=== PATIENT | female | born 1940 | race Two or more races ===

== ENCOUNTER 2019-08-04 22:35 | Inpatient (IN) | payer MEDICARE, OTHER ==
[~2019-08-04] VITALS: Ht 152.4 cm; Wt 60.3 kg
[2019-08-04] MEDS ORDERED: ONDANSETRON HCL/PF 4 MG/2 ML VIAL ONE (22:57)
[2019-08-04] MEDS ORDERED: MORPHINE SULFATE INJ 4 MG/ML DISP.SYRIN ONE (22:57)
[2019-08-04] MEDS ORDERED: MORPHINE SULFATE INJ 2 MG/ML DISP.SYRIN IV ONE (23:00)
[2019-08-04] MEDS ORDERED: IV NS 0.9% 1,000 ML BAG IV ONE (23:00)
[2019-08-04] MEDS ORDERED: ONDANSETRON HCL/PF 4 MG/2 ML VIAL IVP ONE (23:00)
[2019-08-04 23:07] LABS: BASOPHILS % (AUTO) 0.4 % (0.0-2.0); EOSINOPHILS % (AUTO) 2.1 % (0.0-6.0); HEMATOCRIT 34 % (33-45); LYMPHOCYTES # (AUTO) 0.9 /CMM (0.8-4.8); LYMPHOCYTES % (AUTO) 11.1 % (20.0-44.0); MEAN CORPUSCULAR HGB CONC 32 g/dl (31.0-36.0); MEAN CORPUSCULAR VOLUME 80 fL (82-100); MONOCYTES # (AUTO) 0.6 /CMM (0.1-1.30); MONOCYTES % (AUTO) 7.6 % (2.0-12.0); NEUTROPHILS # (AUTO) 6.7 /CMM (1.8-8.9); NEUTROPHILS % (AUTO) 78.8 % (43.0-81.0); PLATELET COUNT (AUTO) 289 /CMM (150-450); RED BLOOD CELL COUNT(AUTO) 4.27 MIL/uL (4.0-5.2); WHITE BLOOD COUNT (AUTO) 8.5 K/uL (4.3-11.0)
--- NOTE | 2019-08-04 23:10 | NUR ---
BIBFAMILY C/O UPPER ABDOMINAL PAIN X3 DAYS. -NAUSEA/VOMITTING. +GAS, HX OF HERNIA, HERNIA REPAIR X3 WEEKS PER FAMILY, TO ER BED 2 VSS, ORDERS RECEIVED AND CARRIED OUT
[2019-08-04 23:17] LABS: CALCIUM, SERUM 9.6 mg/dL (8.5-10.1); CARBON DIOXIDE 30 mmol/L (21-32); CHLORIDE 104 mmol/L (98-107); CREATININE 0.9 mg/dL (0.6-1.3); GLUCOSE 162 mg/dL (74-106); SODIUM SERUM 142 mmol/L (136-145); UREA NITROGEN, BLOOD 17 mg/dL (7-18)
[2019-08-04 23:23] LABS: ALANINE AMINOTRANSFERASE 23 U/L (12-78); ALBUMIN 3.3 g/dL (3.4-5.0); ALKALINE PHOSPHATASE 87 U/L (46-116); ASPARTATE AMINOTRANSFERASE 17 U/L (15-37); BILIRUBIN,DIRECT 0.1 mg/dL (0.0-0.2); BILIRUBIN,TOTAL 0.4 mg/dL (0.2-1.0); LIPASE 118 U/L (73-393); TOTAL PROTEIN, SERUM 7.1 g/dL (6.4-8.2)
--- NOTE | 2019-08-04 23:28 | NUR ---
URINE RETRIEVED AND SENT TO LAB FOR SPECIMEN
--- NOTE | 2019-08-04 23:32 | NUR ---
PT TAKED TO CT
[2019-08-04 23:33] LABS: APPEARANCE,URINE Clear (CLEAR); BILIRUBIN,URINE Negative (NEGATIVE); BLOOD, URINE Negative Ery/uL (NEGATIVE); COLOR,URINE Yellow (YELLOW); KETONES,URINE Negative (NEGATIVE); LEUKOCYTE ESTERASE ,URINE Trace (NEGATIVE); NITRITE, URINE Positive (NEGATIVE); PROTEIN,URINE Negative (NEGATIVE); UGLUCOSE Negative (NEGATIVE); UROBILINOGEN,URINE 0.2 EU/dL (0.2)
--- NOTE | 2019-08-04 23:38 | NUR ---
PT BACK FROM CT
[2019-08-04 23:44] LABS: BACTERIA,URINE Many /HPF (None Seen); RBC,URINE 0-2 /HPF (0-2); SQUAMOUS EPITHELIAL CELL,UR Few /HPF (None Seen)
[2019-08-04] MEDS ORDERED: CEFTRIAXONE 1 G VIAL ONE (23:57)
[2019-08-05] MEDS ORDERED: CEFTRIAXONE 1GM BAG (ER ONLY) 1 GM/50 ML PIGGYBACK IV ONE
[2019-08-05] MEDS ORDERED: LIDOCAINE 2% JEL 5 ML TUBE ONE (00:25)
[2019-08-05] MEDS ORDERED: LIDOCAINE VISCOUS 2% UD 15 ML UDC ONE (00:34)
[2019-08-05] MEDS ORDERED: LIDOCAINE VISCOUS 2% UD 15 ML UDC MM ONE (00:45)
[2019-08-05] MEDS ORDERED: DEXTROSE 50%-WATER 50 ML DISP.SYRIN IV PRN (01:00)
[2019-08-05] MEDS ORDERED: Z GUARD REMEDY 2 OZ OINT TP PRN (01:00)
[2019-08-05] MEDS ORDERED: MAGNESIUM HYDROXIDE 30 ML UDC PO PRN (01:00)
[2019-08-05] MEDS ORDERED: *INSULIN REGULAR(HUMULIN R)HUM 100 UNIT/ML VIAL SQ PRN (01:00)
[2019-08-05] MEDS ORDERED: HYDROCODONE/APAP 5/325MG 1 EACH TABLET PO PRN (01:00)
[2019-08-05] MEDS ORDERED: CEFTRIAXONE 1 G in IV D5W 50 ML IV SCH (01:00)
[2019-08-05] MEDS ORDERED: ACETAMINOPHEN 325 MG TABLET PO PRN (01:00)
[2019-08-05] MEDS ORDERED: INSULIN REGULAR, HUMAN 100 UNIT/ML 3 ML VIAL SQ PRN (01:00)
[2019-08-05] MEDS ORDERED: MAG HYDROX/AL HYDROX/SIMETH 30 ML UDC PO PRN (01:00)
[2019-08-05] MEDS ORDERED: MORPHINE SULFATE INJ 2 MG/ML DISP.SYRIN ONE (01:19)
[2019-08-05] MEDS: MORPHINE SULFATE INJ 2 MG/ML DISP.SYRIN IV PRN ×3 (01:24→14:47)
[2019-08-05 01:50] VITALS: BP 146/89
--- NOTE | 2019-08-05 01:51 | NUR ---
TRANSPORTED PT TO UNIT
[2019-08-05] MEDS: IV D5W 1,000 ML IV PRN ×2 (02:08→15:48)
[2019-08-05] MEDS: ONDANSETRON HCL/PF 4 MG/2 ML VIAL IVP PRN (06:22)
[2019-08-05] MEDS: BLOOD SUGAR DIAGNOSTIC 1 EACH STRIP VI SCH ×4 (06:34→21:29)
--- NOTE | 2019-08-05 06:48 | NUR ---
MS RN NOTES AWAKE & RESPONSIVE. NOT IN ANY DISTRESS. NO SOB NOTED. DENIES ANY PAIN OR DISCOMFORT AT THIS TIME. WITH NGT TO LIS WITH BROWNISH OUTPUT SCANTY IN AMOUNT. MONITORED ACCORDINGLY. CALL LIGHT WITHIN REACH. BED IN LOWEST POSITION. SR UP X 3 WITH BED ALARM ON FOR SAFETY. WILL ENDORSE TO NEXT SHIFT.
--- NOTE | 2019-08-05 07:50 | NUR ---
MS RN NOTES PATIENT IN BED SLEEPING. EMIRATI SPEAKING. NO SOB OR ACUTE DISTRESS NOTED. DAUGHTER AT BEDSIDE. PERIPHERAL IV INTACT PATENT. NG TUBE IN PLACE ON INTERMITTENT SUCTIONING. BED IN LOW LOCKED POSITION. CALL LIGHT WITHIN REACH. WILL CONTINUE TO MONITOR.
[2019-08-05 08:00] VITALS: BP 123/70
[2019-08-05] MEDS ORDERED: CYCL30DR EACHEYE (08:15)
[2019-08-05] MEDS ORDERED: MYRBETRIQ PO (08:15)
[2019-08-05] MEDS ORDERED: ATOR10TA PO (08:15)
[2019-08-05] MEDS ORDERED: LOSA1TAB36 PO (08:15)
[2019-08-05] MEDS ORDERED: METF-440 PO (08:15)
[2019-08-05 16:00] VITALS: BP 146/76
[2019-08-05] MEDS ORDERED: DIATR MEGLU/DIATRIZOATE SODIUM 120 ML BOTTLE (GASTROGRAPHIN) ONE (16:12)
--- NOTE | 2019-08-05 18:41 | NUR ---
MS RN NOTES PATIENT IN BED RESTING NO SOB OR ACUTE DISTRESS NOTED. ALL DUE MEDICATIONS ADMINISTERED. ALL NEEDS MET. NO ACUTE CHANGES NOTED DURING AM SHIFT. WILL ENDORSE CARE TO PM SHIFT.
[2019-08-05 20:20] VITALS: BP 134/74
[2019-08-06] MEDS ORDERED: CEFTRIAXONE 1 G in IV D5W 50 ML IV SCH ×2
[2019-08-06] MEDS: ONDANSETRON HCL/PF 4 MG/2 ML VIAL IVP PRN (04:54)
[2019-08-06] MEDS: MORPHINE SULFATE INJ 2 MG/ML DISP.SYRIN IV PRN ×2 (04:54→08:42)
[2019-08-06] MEDS: BLOOD SUGAR DIAGNOSTIC 1 EACH STRIP VI SCH ×2 (06:26→12:09)
[2019-08-06 06:32] LABS: BASOPHILS % (AUTO) 0.3 % (0.0-2.0); EOSINOPHILS % (AUTO) 1.2 % (0.0-6.0); HEMATOCRIT 34 % (33-45); HEMOGLOBIN 10.8 g/dL (11.5-14.8); LYMPHOCYTES # (AUTO) 0.7 /CMM (0.8-4.8); LYMPHOCYTES % (AUTO) 9.6 % (20.0-44.0); MEAN CORPUSCULAR HGB CONC 32 g/dl (31.0-36.0); MEAN CORPUSCULAR VOLUME 80 fL (82-100); MONOCYTES # (AUTO) 0.6 /CMM (0.1-1.30); MONOCYTES % (AUTO) 7.9 % (2.0-12.0); NEUTROPHILS # (AUTO) 6.2 /CMM (1.8-8.9); PLATELET COUNT (AUTO) 272 /CMM (150-450); RED BLOOD CELL COUNT(AUTO) 4.22 MIL/uL (4.0-5.2); WHITE BLOOD COUNT (AUTO) 7.6 K/uL (4.3-11.0)
[2019-08-06 06:50] LABS: CALCIUM, SERUM 8.5 mg/dL (8.5-10.1); CREATININE 0.7 mg/dL (0.6-1.3); MAGNESIUM 1.8 mg/dL (1.8-2.4); PHOSPHORUS 3.2 mg/dL (2.5-4.9); POTASSIUM 3.5 mmol/L (3.5-5.1)
--- NOTE | 2019-08-06 07:30 | NUR ---
RN OPENING NOTES PATIENT IN BED SLEEPING. KHMER SPEAKING. NO SOB OR ACUTE DISTRESS NOTED. DAUGHTER AT BEDSIDE. PERIPHERAL IV INTACT AND PATENT. NG TUBE IN PLACE ON INTERMITTENT SUCTIONING. BED IN LOW LOCKED POSITION. CALL LIGHT WITHIN REACH. WILL CONTINUE TO MONITOR ACCORDINGLY
[2019-08-06 08:00] VITALS: BP 127/73
[2019-08-06] MEDS ORDERED: LIDOCAINE SOLN 4% 50 ML BOTTLE TP ONE (08:30)
--- NOTE | 2019-08-06 08:38 | NUR ---
WOUND CARE CONSULT: PT PRESENTS AMBULATORY WITH ASSISTANCE WITH HEALED SCARS AND DRY SCAB TO ABDOMEN, PRESENT ON ADMISSION. PER PT'S DAUGHTER, PT HAD ABDOMINAL SURGERY 4 WKS AGO. NO WOUND CARE NEEDED AT THIS TIME. WILL SEE PRN. CURRENT MARK SCORE IS 19.
--- NOTE | 2019-08-06 11:00 | NUR ---
RN NOTES RECEIVED A CALL FROM DR AKERS. ORDERS TO REMOVE NG TUBE, CLEAR LIQ DIET AND ADVANCE DIET TOLERATED. ORDERS NOTED AND WILL CARRY OUT
--- NOTE | 2019-08-06 13:52 | NUR ---
rn notes followed up with central supply. awaiting for DVT pump
--- NOTE | 2019-08-06 13:55 | NUR ---
RN NOTES DR AKERS AT BEDSIDE. PATIENT CLEAR FOR DISCHARGE PER MD.
--- NOTE | 2019-08-06 16:33 | NUR ---
DISCHARGED PATIENT IN STABLE CONDITION PICKED UP BY DAUGHTER, ACCOMPANIED BY JOEL SHER AT THE LOBBY VIA WHEELCHAIR. DISCHARGE INSTRUCTIONS GIVEN, TO F/U WITH PCP AND CONT HOME MEDS ORDERED. VERBALIZED UNDERSTANDING. DC PAPERWORK AND CD IMAGES PROVIDED. BELONGINGS RETURNED, FORM SIGNED. IV ACCESS REMOVED, NO COMPLICATIONS. NAME BAND REMOVED
== END 2019-08-06 16:30 | disposition home or self-care (01) | DRG 389 ==
LOC: ER 22:40 → MEDSG2 08-05 00:53
PROVIDERS: ADMIT Internal Medicine; ATTEND Student in an Organized Health Care Education/Training Program
DX: K56.609 Unspecified intestinal obstruction, unspecified as to partial versus complete obstruction (principal); N39.0 Urinary tract infection, site not specified; E44.0 Moderate protein-calorie malnutrition; E11.9 Type 2 diabetes mellitus without complications; E66.9 Obesity, unspecified; E78.5 Hyperlipidemia, unspecified; I10 Essential (primary) hypertension; Z68.26 Body mass index [BMI] 26.0-26.9, adult; K44.9 Diaphragmatic hernia without obstruction or gangrene
CPT/HCPCS: 36415; 71045-TC; 74250-TC; 80048-TC; 80076-TC; 81000-TC; 82962-TC; 83690-TC; 83735-TC; 84100-TC; 84484-TC; 85025-TC; 85730-TC; 87081-TC; 87086-TC; G0378; J0696; J1815; J2270; J2405; J7030; J7060; J7070; Q9963

== ENCOUNTER 2019-10-14 22:54 | Inpatient (IN) | payer MEDICARE, OTHER ==
[~2019-10-14] VITALS: Ht 152.4 cm; Wt 58.5 kg
[~2019-10-14 22:54] MED LIST: ATOR10TA PO; CYCL30DR EACHEYE; LOSA1TAB36 PO; METF-440 PO; MYRBETRIQ PO
[2019-10-14] MEDS ORDERED: MORPHINE SULFATE INJ 4 MG/ML DISP.SYRIN ONE (23:22)
[2019-10-14] MEDS ORDERED: ONDANSETRON HCL/PF 4 MG/2 ML VIAL ONE (23:22)
--- NOTE | 2019-10-14 23:25 | NUR ---
BLOOD COLLECTED AND SENT W/ CHILD PROTECTIVE SERVICES SOCIAL WORKER TO THE LAB
[2019-10-14 23:28] LABS: BASOPHILS % (AUTO) 0.4 % (0.0-2.0); EOSINOPHILS % (AUTO) 1.3 % (0.0-6.0); HEMATOCRIT 42 % (33-45); HEMOGLOBIN 13.3 g/dL (11.5-14.8); LYMPHOCYTES # (AUTO) 1.4 /CMM (0.8-4.8); LYMPHOCYTES % (AUTO) 12.7 % (20.0-44.0); MEAN CORPUSCULAR HGB CONC 32 g/dl (31.0-36.0); MEAN CORPUSCULAR VOLUME 83 fL (82-100); MONOCYTES # (AUTO) 0.7 /CMM (0.1-1.30); MONOCYTES % (AUTO) 6.1 % (2.0-12.0); NEUTROPHILS # (AUTO) 8.7 /CMM (1.8-8.9); NEUTROPHILS % (AUTO) 79.5 % (43.0-81.0); PLATELET COUNT (AUTO) 350 /CMM (150-450); RED BLOOD CELL COUNT(AUTO) 5.03 MIL/uL (4.0-5.2); WHITE BLOOD COUNT (AUTO) 10.9 K/uL (4.3-11.0)
[2019-10-14] MEDS ORDERED: MORPHINE SULFATE INJ 2 MG/ML DISP.SYRIN IV ONE (23:30)
[2019-10-14] MEDS ORDERED: IV NS 0.9% 1,000 ML BAG IV ONE (23:30)
[2019-10-14] MEDS ORDERED: ONDANSETRON HCL/PF 4 MG/2 ML VIAL IVP ONE (23:30)
--- NOTE | 2019-10-14 23:32 | NUR ---
PT CAME TO ER BED 11 W/ DAUGHTER C/O ABDOMINAL PAIN. PT'S DAUGHTER STATES THAT SHE HAS HAD THE HERNIA ON HER STOMACH FOR YEARS AND IT JUST GOT BIGGER. PT STATES PAIN /. AAOX4. BREATHING EVENLY AND UNLABORED ON ROOM AIR. CONNECTED TO MONITOR.
[2019-10-14 23:38] LABS: CALCIUM, SERUM 9.7 mg/dL (8.5-10.1); CARBON DIOXIDE 30 mmol/L (21-32); CHLORIDE 103 mmol/L (98-107); CREATININE 0.9 mg/dL (0.6-1.3); GLUCOSE 156 mg/dL (74-106); POTASSIUM 3.9 mmol/L (3.5-5.1); SODIUM SERUM 142 mmol/L (136-145); UREA NITROGEN, BLOOD 19 mg/dL (7-18)
[2019-10-14 23:44] LABS: ALANINE AMINOTRANSFERASE 18 U/L (12-78); ALKALINE PHOSPHATASE 86 U/L (46-116); ASPARTATE AMINOTRANSFERASE 20 U/L (15-37); BILIRUBIN,DIRECT 0.1 mg/dL (0.0-0.2); BILIRUBIN,TOTAL 0.4 mg/dL (0.2-1.0); LIPASE 112 U/L (73-393); TOTAL PROTEIN, SERUM 8.2 g/dL (6.4-8.2)
--- NOTE | 2019-10-14 23:57 | NUR ---
RETURNED FROM CT
--- NOTE | 2019-10-15 00:36 | NUR ---
REPORT GIVEN TO CHARBEL VICENTE FOR ANKITA.
[2019-10-15] MEDS ORDERED: IV D5/0.45 NACL 1,000 ML IV PRN (00:48)
[2019-10-15] MEDS ORDERED: ONDANSETRON HCL/PF 4 MG/2 ML VIAL IVP PRN (01:00)
[2019-10-15] MEDS ORDERED: Z GUARD REMEDY 2 OZ OINT TP PRN (01:00)
[2019-10-15] MEDS ORDERED: HYDROCODONE/APAP 5/325MG 1 EACH TABLET PO PRN (01:00)
[2019-10-15] MEDS ORDERED: MAG HYDROX/AL HYDROX/SIMETH 30 ML UDC PO PRN (01:00)
[2019-10-15] MEDS ORDERED: MAGNESIUM HYDROXIDE 30 ML UDC PO PRN (01:00)
[2019-10-15] MEDS ORDERED: ZOLPIDEM TARTRATE 5 MG TABLET PO PRN (01:00)
[2019-10-15] MEDS ORDERED: ACETAMINOPHEN 325 MG TABLET PO PRN (01:00)
--- NOTE | 2019-10-15 01:14 | NUR ---
URINE COLLECTED AND SENT TO LAB
[2019-10-15 01:19] LABS: APPEARANCE,URINE Slightly Cloudy (CLEAR); BILIRUBIN,URINE Negative (NEGATIVE); BLOOD, URINE Negative Ery/uL (NEGATIVE); COLOR,URINE Yellow (YELLOW); KETONES,URINE Negative (NEGATIVE); LEUKOCYTE ESTERASE ,URINE Trace (NEGATIVE); NITRITE, URINE Negative (NEGATIVE); PH,URINE 8.5 (5.0-8.0); PROTEIN,URINE Negative (NEGATIVE); UGLUCOSE Negative (NEGATIVE); UROBILINOGEN,URINE 0.2 EU/dL (0.2)
[2019-10-15] MEDS ORDERED: MORPHINE SULFATE INJ 4 MG/ML DISP.SYRIN ONE (01:25)
[2019-10-15] MEDS ORDERED: MORPHINE SULFATE INJ 2 MG/ML DISP.SYRIN IV ONE (01:30)
[2019-10-15] MEDS ORDERED: ONDANSETRON HCL/PF 4 MG/2 ML VIAL IV ONE (01:30)
[2019-10-15 02:12] LABS: BACTERIA,URINE Moderate /HPF (None Seen); SQUAMOUS EPITHELIAL CELL,UR Few /HPF (None Seen); TRIPLE PHOSPHATE CRYSTAL,UR Few /HPF (None Seen)
[2019-10-15 02:20] VITALS: BP 114/68
--- NOTE | 2019-10-15 02:25 | NUR ---
HORSE RACING MANAGER NOTES RECEIVED PATIENT FROM ER TRANSPORTED VIA GURNEY, ACCOMPANIED BY DAUGHTER AND ER STAFF. ADMISSION PROCESS INITIATED, CALM, ALERT, ORIENTED X4 LATVIAN SPEAKING, KNOWS AND UNDERSTANDS SOME GERMAN, DENIES ANY PAIN AT THIS TIME, WITH MINOR DISCOMFORT. ORIENTED TO UNIT AND THE USE OF CALL LIGHT, SAFETY MEASURES IN PLACE, ASPIRATION PRECAUTION EMPHASIZED, SKIN ASSESSMENT DONE, SKIN IS INTACT WITH VISIBLE PROTRUSION AF ABDOMINAL HERNIA, AND OLD SCAR ON HER RIGHT KNEE. ALL NEEDS ANTICIPATED,, REPOSITIONED FOR COMFORT, WILL CONTINUE TO MONITOR ACCORDINGLY.
[2019-10-15 02:30] VITALS: BP 114/68
[2019-10-15] MEDS: MORPHINE SULFATE INJ 2 MG/ML DISP.SYRIN IV PRN ×3 (03:50→13:34)
--- NOTE | 2019-10-15 03:55 | NUR ---
RN NOTES PATIENT NOTED VOMITING APPROXIMATELY 10 CC OF BROWNISH DARK VOMITUS, AND COMPLAINTS OF PAIN 9/10, CRYING, GUARDING, WITH FACIAL GRIMACING NOTED, ZOFRAN IV AND MORPHINE 4MG IV GIVEN PER MD ORDER. WILL CONTINUE TO MONITOR.
[2019-10-15 04:08] VITALS: BP 138/72
--- NOTE | 2019-10-15 06:36 | NUR ---
RN NOTES ALL NEEDS ATTENDED AND MET ABLE TO REST AND SLEPT AT INTERVALS, SAFETY MEASURES INPLACE, ASPIRATION PRECAUTION EMPHASIZED, NPO MAINTAINED, NO NAUSEA AND VOMITING NOTED AT THIS TIME, CALL LIGHT WITH IN EASY REACH. WILL ENDORSE TO AM NURSE FOR CONTINUITY OF CARE.
--- NOTE | 2019-10-15 07:25 | NUR ---
MS RN OPENING NOTES RECEIVED PT IN BED, ASLEEP, EASILY AROUSED, LUXEMBOURGISH SPEAKING, A/O X4. FAMILY PRESENT AT BEDSIDE. PT TOLERATING RA, WITH NO ACUTE RESPIRATORY DISTRESS NOTED. PT DENIES ANY PAIN AND DISCOMFORT AT THE THIS TIME. PIV TO LAC G20, FLUSHED WITH NS, INTACT AND OPERATIONAL. PT KEPT COMFORTABLE. PT'S BED IN LOWEST LOCKED POSITION WITH SR X3. CALL LIGHT KEPT WITHIN REACH. WILL CONTINUE PLAN OF CARE.
[2019-10-15 07:30] VITALS: BP 102/59
--- NOTE | 2019-10-15 08:15 | NUR ---
MS RN NOTES SEEN AND EVALUATED BY SUPERVISOR SAMPLE PREPARATION/PS FROM SURGERY; DAUGHTER PRESENT AT BEDSIDE AND AWARE WITH THE PLAN OF CARE. ORDERS PLACED.
[2019-10-15] MEDS: PANTOPRAZOLE 40 MG VIAL IV SCH (08:19)
--- NOTE | 2019-10-15 08:50 | NUR ---
MS RN NOTES ABDOMINAL BINDER LARGE, PLACED. NGT INSERTION TRIED THRICE, BUT UNSUCCESSFUL. PT CRYING AND DOESN'T WANT NURSES TO PROCEED. FILER AND SANDER/SP MADE AWARE AND DAUGHTER'S CONCERN ABOUT MEDICINE JUST TO TAKE PER ORAL FOR PT'S XR BOWEL FOLLOW THROUGH. AWAITING FOR RESPONSE.
--- NOTE | 2019-10-15 09:10 | NUR ---
MS RN NOTES BUSINESS CENTER MANAGER/PS AWARE REGARDING PT'S REFUSAL OF NGT AND PREFERS TO DRINK THE CONTRAST ORALLY. BUSINESS CENTER MANAGER/PT OKAY WITH NO NGT AT THIS TIME, LONG PT CAN SWALLOW. DAUGHTER PRESENT AT BEDSIDE AND AWARE WITH THE PLAN. PT SIGNED CONSENT HERSELF FOR CONTRAST ADMINISTRATION BY MOUTH. PT AWARE WITH THE PLAN OF CARE WELL.
--- NOTE | 2019-10-15 10:11 | NUR ---
MS RN NOTES PT WHEELED TO XRAY FOR XR SB FOLLOW THROUGH. DAUGHTER PRESENT AT THE ROOM.
[2019-10-15] MEDS ORDERED: DIATR MEGLU/DIATRIZOATE SODIUM 120 ML BOTTLE (GASTROGRAPHIN) ONE (10:29)
[2019-10-15] MEDS ORDERED: DEXTROSE 50%-WATER 50 ML DISP.SYRIN IV PRN (12:00)
[2019-10-15] MEDS ORDERED: *INSULIN REGULAR(HUMULIN R)HUM 100 UNIT/ML VIAL SQ PRN (12:00)
[2019-10-15] MEDS ORDERED: INSULIN REGULAR, HUMAN 100 UNIT/ML 3 ML VIAL SQ PRN (12:00)
--- NOTE | 2019-10-15 12:22 | NUR ---
MS RN NOTES PT STILL AT THE READIOLOGY DEPARTMENT. AWAITING PT TO COME BACK FOR ACCUCHECK.
--- NOTE | 2019-10-15 12:40 | NUR ---
MS RN NOTES PT CAME BACK FROM RADIOLOGY.
[2019-10-15] MEDS: BLOOD SUGAR DIAGNOSTIC 1 EACH STRIP VI SCH ×3 (12:53→21:12)
[2019-10-15 13:33] VITALS: BP 113/69
[2019-10-15] MEDS: IV D5/0.45 NACL 1,000 ML IV PRN (13:45)
--- NOTE | 2019-10-15 17:55 | NUR ---
MS RN NOTES PT'S RESULT OF SMALL BOWEL FOLLOW THROUGH RELAYED TO SURGERY GRAPPLE SKIDDER OPERATOR/PS. AWAITING FOR ORDERS.
--- NOTE | 2019-10-15 18:01 | NUR ---
MS RN NOTES PER SURGERY CASEWORK MANAGER/PS KEEP PT NPO. PT HASN'T PASS GAS. WILL CONTINUE TO MONITOR.
--- NOTE | 2019-10-15 18:44 | NUR ---
MS RN CLOSING NOTES PT REMAINS IN BED, INTERMITTENTLY DOZING OFF, EASILY AROUSED, AZERI SPEAKING, A/O X4. FAMILY PRESENT AT BEDSIDE. PT TOLERATING RA, WITH NO ACUTE RESPIRATORY DISTRESS NOTED. PT DENIES ANY PAIN AND DISCOMFORT AT THE THIS TIME. IVF D5 1/2NS AT 100ML/HR TO LAC G20, FLUSHED WITH NS, INTACT AND FLUID INFUSING WELL. ALL NEEDS AND CARE ATTENDED. PT KEPT COMFORTABLE. PT'S BED IN LOWEST LOCKED POSITION WITH SR X3. CALL LIGHT KEPT WITHIN REACH. WILL ENDORSE TO INCOMING NIGHT NURSE FOR ANKITA.
--- NOTE | 2019-10-15 19:15 | NUR ---
MS RN OPENING NOTES: RECEIVED PT ON ROOM AIR AND IS TOLERATING WELL. 2 FAMILY MEMBERS AT BEDSIDE. PT HAS IV ON L AC #20G AND IS BEING INFUSED WITH IV D5 1/2 NS AT 100ML/HR. PT IS NPO AT THIS TIME. PT REQUESTING TO BE DISCONNECTED AT THIS TIME SHE IS HAVING TO GO TO THE BATHROOM MULTIPLE TIMES AT THIS TIME. NO SOB NOTED. NO S/S OF DISTRESS. PT IS CHINESE SPEAKING ONLY. PT IS A/OX3-4 AND CAN UNDERSTAND SOME FRISIAN. BED KEPT IN LOW, LOCKED POSITION, AND SIDE RAILS X 2UP. NO BED ALARM FOR NOW FAMILY IS AT BEDSIDE.
--- NOTE | 2019-10-15 20:45 | NUR ---
MS RN NOTES: NOTIFIED DR. GODOY THAT PT IS PASSING GAS AND HAVING BMS BUT HAD HER XR BOWEL FOLLOW THROUGH TODAY AND MAY BE RELATED TO CONTRAST. IS AWARE AND STILL TO KEEP HER NPO. SPOKE TO DTR AT BEDSIDE AND INFORMED HER THAT HER MOTHER IS TO STAY NPO FOR THE MEANTIME UNTIL ASSESSED BY HOSPITALIST TOMORROW. Addendum: 10/16/19 at 0725 by KARISSA DOSHI RN DTR HAD MENTIONED THAT HER BMS WERE LIKE SEAWEED COLOR AND THE LATEST ONE WAS LIGHT BROWN BUT LIQUIDY.
[2019-10-15 20:49] VITALS: BP 131/72
--- NOTE | 2019-10-15 21:14 | NUR ---
MS RN NOTES: BLOOD SUGAR THIS PM WAS 104. PT IS NPO AND PER SLIDING SCALE, NO INSULIN TO BE ADMINISTERED. PT ON IV D51/2 NS AT 100ML/HR. WILL CONTINUE TO MONITOR.
--- NOTE | 2019-10-16 | NUR ---
MS RN NOTES: PT CONNECTED BACK TO IV FLUIDS.
--- NOTE | 2019-10-16 00:37 | NUR ---
MS RN NOTES: INFORMED DR. GODOY THAT PT IS NPO AND COMPLAINING OF HEADACHE. OK TO ORDER TYLENOL 650MG SUPPOSITORY Q6HR FOR MILD PAIN. Addendum: 10/16/19 at 0202 by KARISSA DOSHI RN q6hr prn
--- NOTE | 2019-10-16 00:54 | NUR ---
MS RN NOTES: PT COMPLAINING OF A HEADACHE. PT WAS ADMINISTERED TYLENOL 650 MG SUPPOSITORY. WILL CONTINUE TO MONITOR.
[2019-10-16] MEDS ORDERED: ACETAMINOPHEN 650 MG/SUPP.RECT RC PRN (01:00)
[2019-10-16] MEDS: IV D5/0.45 NACL 1,000 ML IV PRN ×2 (02:54→21:40)
[2019-10-16] MEDS: BLOOD SUGAR DIAGNOSTIC 1 EACH STRIP VI SCH ×4 (06:36→21:48)
--- NOTE | 2019-10-16 06:36 | NUR ---
MS RN NOTES: BLOOD SUGAR THIS AM WAS 117. PT STILL NPO BUT IS ON IV D51/2 NS AT 100ML/HR. NO INSULIN WAS ADMINISTERED. WILL CONTINUE TO MONITOR.
--- NOTE | 2019-10-16 06:42 | NUR ---
MS RN CLOSING NOTES: ALL NEEDS WERE ATTENDED AND ANTICIPATED FOR. PT KEPT CLEAN, DRY, AND COMFORTABLE. IV REMAINS INTACT ON L AC AND IS BEING INFUSED WITH IV D5 1/2 NS AT 100ML/HR. PT REMAINS NPO AT THIS TIME. NO SOB NOTED. NO S/S OF DISTRESS. PT REMAINS ON ROOM AIR AND IS TOLERATING WELL. DTR AT BEDSIDE. NO COMPLAINTS OF PAIN. NO N/V. ABDOMINAL BINDER REMAINS IN PLACE. BED KEPT IN LOW, LOCKED POSITION, AND SIDE RAILS X 2UP. INSTRUCTED PT TO USE CALL LIGHT FOR ASSISTANCE AND EDUCATED DTR WELL. WILL ENDORSE TO AM NURSE FOR ANKITA.
[2019-10-16 06:43] LABS: BASOPHILS % (AUTO) 0.5 % (0.0-2.0); EOSINOPHILS % (AUTO) 5.4 % (0.0-6.0); HEMATOCRIT 29 % (33-45); HEMOGLOBIN 9.5 g/dL (11.5-14.8); LYMPHOCYTES # (AUTO) 1.3 /CMM (0.8-4.8); LYMPHOCYTES % (AUTO) 32.5 % (20.0-44.0); MEAN CORPUSCULAR HGB CONC 32 g/dl (31.0-36.0); MEAN CORPUSCULAR VOLUME 82 fL (82-100); MONOCYTES # (AUTO) 0.3 /CMM (0.1-1.30); MONOCYTES % (AUTO) 7.8 % (2.0-12.0); NEUTROPHILS # (AUTO) 2.2 /CMM (1.8-8.9); NEUTROPHILS % (AUTO) 53.8 % (43.0-81.0); PLATELET COUNT (AUTO) 237 /CMM (150-450); RED BLOOD CELL COUNT(AUTO) 3.58 MIL/uL (4.0-5.2); WHITE BLOOD COUNT (AUTO) 4.1 K/uL (4.3-11.0)
[2019-10-16 07:06] LABS: THYROID STIMULATING HORMONE 1.324 uIU/mL (0.358-3.74)
[2019-10-16 07:21] LABS: CALCIUM, SERUM 7.9 mg/dL (8.5-10.1); CREATININE 0.7 mg/dL (0.6-1.3); MAGNESIUM 1.8 mg/dL (1.8-2.4); PHOSPHORUS 3.2 mg/dL (2.5-4.9); POTASSIUM 3.3 mmol/L (3.5-5.1)
--- NOTE | 2019-10-16 07:39 | NUR ---
M/S RN OPENING NOTES RECEIVED PATIENT ON BED A/OX4 WITH RAMONA (DAUGHTER) ON BED SIDE, EMIRATI AND NAMIBIAN SPEAKING. RESPIRATION EVEN AND NON LABORED WITH NO ACUTE RESPIRATORY DISTRESS. ABD SOFT AND NON DISTENDED WITH ACTIVE BOWEL SOUNDS, HAD LOOSE BROWN BM YESTERDAY. DENIES PAIN AND DISCOMFORT. ON NPO. IV SITE AT LEFT AC PATENT IN FLUSHING WITH D5 1/2 NS AT 100 ML/HR. SKIN WARM TO TOUCH AND DRY. CALL LIGHT WITHIN REACH. WILL CONTINUE TO EVALUATE CARE
[2019-10-16 08:00] VITALS: BP 112/64
[2019-10-16] MEDS: PANTOPRAZOLE 40 MG VIAL IV SCH (08:11)
[2019-10-16] MEDS: POTASSIUM CL. PREMIX PERIPHER. 50 ML IV SCH ×2 (10:56→13:29)
--- NOTE | 2019-10-16 11:30 | NUR ---
M/S RN NOTES WHILE INFUSING POTASSIUM IV, PT COMPLAIN OF LEFT AC PAIN, SITE PATENT IN FLUSHING, NO S/SX OF INFILTRATION, ATTEMPTED TO REDUCE THE RATE TO 20 ML/HR, STILL FEEL "STING" EFFECT. RE-INSERTED LINE TO LEFT FOREARM #24, PATENT IN FLUSHING AND PROMINENT BACK FLOW. CONTINUED POTASSIUM IV, STILL PAINFUL. REFERRED TO DR. LOPES REGARDING INABILITY TO TOLERATE IV. WILL CHECK WITH SURGERY IF PT CAN EAT. WILL CONTINUE TO FF UP.
--- NOTE | 2019-10-16 13:06 | NUR ---
M/S RN NOTES PAGED DR. ALLY PEREZ FOR CLARIFICATION OR ORDER IF PT STILL REMAIN ON NPO. WAITING FOR RESPONSE
--- NOTE | 2019-10-16 13:37 | NUR ---
M/S RN NOTES OBTAINED NEW ORDER FROM DR. LOPES: START ON CLEAR LIQUID DIET, GIVE KCL 40 MEQ PO. DC POTASSIUM IV. WILL CONTINUE TO FF UP WITH SURGEON FOR PLAN OF CARE. ORDER READ BACK NOTED AND CARRIED OUT. PATIENT AND RAMONA (DAUGHTER) NOTIFIED.
[2019-10-16] MEDS ORDERED: POTASSIUM CHLORIDE 20 MEQ TAB.PRT.SR PO ONE (14:00)
[2019-10-16] MEDS ORDERED: POTASSIUM CHLORIDE 20 MEQ POWDER PACKET PO ONE (14:00)
--- NOTE | 2019-10-16 14:41 | NUR ---
M/S RN NOTES PT TOLERATED CLEAR LIQUID WITH NO N/V, DIARRHEA NOTED. WILL CONTINUE TO MONITOR.
[2019-10-16 16:00] VITALS: BP 128/66
[2019-10-16 16:14] LABS: OCCULT BLOOD STOOL POSITIVE (NEGATIVE)
--- NOTE | 2019-10-16 19:29 | NUR ---
M/S RN CLOSING NOTES PT A/OX4, RESPONSIVE TO ALL STIMULI. ASSESSED NO SOB. ABD SOFT WITH HERNIA PRESENCE, ABDOMINAL BINDER IN PLACE. SKIN KEPT CLEAN AND DRY, NO NEW OPEN SKIN BREAKDOWN. DENIES PAIN AND DISCOMFORT. RIGHT FA #24 PATENT IN FLUSHING. PT TOLERATED CLEAR LIQUID DIET. CALL LIGHT WITHIN REACH. BED IN LOW, LOCKED POSITION. ALL CONCERNS ATTENDED. ENDORSED PT CARE TO NEXT SHIFT
--- NOTE | 2019-10-17 05:03 | NUR ---
sPEAKS SETSWANA BUT DAUGHTER AT THE BEDSIDE TO TRANSLAT. MD PEREZ AT THE BEDSIDE AT 1999 EXPLAINED TO THE DAUGHTER AND PATIENT THAT SHE CAN GO HOME FROM HIS STAND POINT BUT LEONILA GO TO HER OUTSIDE MD THAT SHE HAS BEEN SEEING AND HAVE THE SURGERY. SHE HAD NO ABD PAIN THIS 12 HOURS. PASSING FLATUS. TOLERATING CLEAR LIQUIDS. STARTED AND IV LEFT F/A G22 AND RESTARTED THE IV FLUIDS.
[2019-10-17] MEDS: IV D5/0.45 NACL 1,000 ML IV PRN (06:44)
[2019-10-17] MEDS: BLOOD SUGAR DIAGNOSTIC 1 EACH STRIP VI SCH (06:48)
--- NOTE | 2019-10-17 07:29 | NUR ---
M/S RN OPENING NOTES RECEIVED PATIENT ON BED, A/OX 3, RESPONSIVE TO ALL STIMULI. RESPIRATION EVEN AND NON LABORED WITH NO ACUTE RESPIRATORY DISTRESS. ABDOMEN SOFT AND NON DISTENDED WITH ACTIVE BOWEL SOUNDS. DENIES PAIN AND DISCOMFORT. SKIN WARM TO TOUCH AND DRY. LEFT FOREARM #22 PATENT IN FLUSHING WITH D51/2 NS RUNNING AT 100 ML/HR. CALL LIGHT WITHIN REACH. ALL CONCERNS ATTENDED, BED IN LOW, LOCKED POSITION. WILL CONTINUE TO EVALUATE CARE.
[2019-10-17 08:00] VITALS: BP 137/64
[2019-10-17] MEDS: PANTOPRAZOLE 40 MG VIAL IV SCH (08:14)
[2019-10-17 08:28] LABS: BASOPHILS % (AUTO) 0.4 % (0.0-2.0); EOSINOPHILS % (AUTO) 5.5 % (0.0-6.0); HEMATOCRIT 32 % (33-45); HEMOGLOBIN 10.2 g/dL (11.5-14.8); LYMPHOCYTES # (AUTO) 1.1 /CMM (0.8-4.8); LYMPHOCYTES % (AUTO) 26.3 % (20.0-44.0); MEAN CORPUSCULAR HGB CONC 32 g/dl (31.0-36.0); MEAN CORPUSCULAR VOLUME 82 fL (82-100); MONOCYTES # (AUTO) 0.4 /CMM (0.1-1.30); MONOCYTES % (AUTO) 9.7 % (2.0-12.0); NEUTROPHILS # (AUTO) 2.5 /CMM (1.8-8.9); NEUTROPHILS % (AUTO) 58.1 % (43.0-81.0); PLATELET COUNT (AUTO) 260 /CMM (150-450); RED BLOOD CELL COUNT(AUTO) 3.82 MIL/uL (4.0-5.2); WHITE BLOOD COUNT (AUTO) 4.3 K/uL (4.3-11.0)
[2019-10-17 08:57] LABS: CALCIUM, SERUM 7.9 mg/dL (8.5-10.1); CREATININE 0.6 mg/dL (0.6-1.3); MAGNESIUM 1.7 mg/dL (1.8-2.4); PHOSPHORUS 2.9 mg/dL (2.5-4.9); POTASSIUM 4.1 mmol/L (3.5-5.1)
--- NOTE | 2019-10-17 10:10 | NUR ---
M/S SPRINKLING SYSTEM INSTALLER NOTES PT DISCHARGE TO HOME ACCOMPANIED BY RAMONA (DAUGHTER) IN MEDICALLY STABLE CONDITION. PT A/OX4, RESPONSIVE TO ALL STIMULI. NO PRESENCE OF ACUTE RESPIRATORY DISTRESS, ABLE TO TOLERATE ROOM AIR. ABD SOFT AND NON DISTENDED WITH ACTIVE BOWEL SOUNDS, LBM 10/17/19, BRP, CONTINENT B&B. SKIN INTACT AND DRY. NO COMPLAIN OF PAIN. EXIT CARE PROVIDED TO PATIENT AND DAUGHTER, ALL CONCERNS/CARE/QUERIES ATTENDED, VERBALIZED UNDERSTANDING. IV SITE REMOVED. ID BAND REMOVED PER PROTOCOL. PATIENT HAS PRIVATE CAR WITH DAUGHTER. LEFT IN SAFE CONDITION.
== END 2019-10-17 10:10 | disposition home or self-care (01) | DRG 395 ==
LOC: ER 22:54 → MEDSG2 10-15 01:39
PROVIDERS: ADMIT Internal Medicine; ATTEND Internal Medicine
DX: K43.6 Other and unspecified ventral hernia with obstruction, without gangrene (principal); E11.9 Type 2 diabetes mellitus without complications; I10 Essential (primary) hypertension; Z90.49 Acquired absence of other specified parts of digestive tract; Z98.890 Other specified postprocedural states; Z79.84 Long term (current) use of oral hypoglycemic drugs; Z79.899 Other long term (current) drug therapy; D64.9 Anemia, unspecified; E78.5 Hyperlipidemia, unspecified; K57.30 Diverticulosis of large intestine without perforation or abscess without bleeding
CPT/HCPCS: 36415; 71045-TC; 74250-TC; 80048-TC; 80061-TC; 80076-TC; 81000-TC; 82272-TC; 82962-TC; 83690-TC; 83735-TC; 84100-TC; 84443-TC; 84484-TC; 85025-TC; 85730-TC; 87081-TC; 87086-TC; C9113; G0378; J1815; J2270; J2405; J3480; J3490; J7030; Q9963

== ENCOUNTER 2023-03-27 18:05 | Emergency (ER) | payer MEDICARE, OTHER ==
[~2023-03-27] VITALS: Ht 152.4 cm; Wt 56.2 kg
[2023-03-27 18:26] VITALS: TEMP 99.1
[2023-03-27] MEDS ORDERED: CYCLOBENZAPRINE 10 MG TABLET ONE (18:54)
[2023-03-27] MEDS ORDERED: KETOROLAC TROMETHAMINE 15 MG/ML VIAL ONE (18:54)
[2023-03-27] MEDS ORDERED: KETOROLAC TROMETHAMINE INJ 60 MG/2 ML VIAL IM ONE (19:00)
[2023-03-27] MEDS ORDERED: CYCLOBENZAPRINE 10 MG TABLET PO ONE (19:00)
[2023-03-27 19:32] LABS: BASOPHILS % (AUTO) 0.5 % (0.0-2.0); EOSINOPHILS # (AUTO) 0.2 K/uL (0.0-0.7); EOSINOPHILS % (AUTO) 2.7 % (0.0-6.0); HEMATOCRIT 37 % (33-45); HEMOGLOBIN 12.3 g/dL (11.5-14.8); LYMPHOCYTES # (AUTO) 1.1 K/uL (0.8-4.8); LYMPHOCYTES % (AUTO) 18.3 % (20.0-44.0); MEAN CORPUSCULAR HEMOGLOBIN 30 PG (26.0-33.0); MEAN CORPUSCULAR HGB CONC 33 g/dl (31.0-36.0); MEAN CORPUSCULAR VOLUME 89 fL (82-100); MONOCYTES # (AUTO) 0.7 K/uL (0.1-1.30); MONOCYTES % (AUTO) 12.8 % (2.0-12.0); NEUTROPHILS # (AUTO) 3.8 K/uL (1.8-8.9); NEUTROPHILS % (AUTO) 65.7 % (43.0-81.0); PLATELET COUNT (AUTO) 237 K/uL (150-450); RED BLOOD CELL COUNT(AUTO) 4.15 MIL/uL (4.0-5.2); RED CELL DISTRIBUTION WIDTH 16.7 % (11.5-15.0); WHITE BLOOD COUNT (AUTO) 5.8 K/uL (4.3-11.0)
[2023-03-27 19:59] LABS: CALCIUM, SERUM 9.3 mg/dL (8.5-10.1); CREATININE 0.8 mg/dL (0.6-1.3); POTASSIUM 4.1 mmol/L (3.5-5.1)
[2023-03-27] MEDS ORDERED: CYCL5TAB PO (20:39)
[2023-03-27] MEDS ORDERED: IBUP-1955 PO (20:39)
[2023-03-27 21:00] VITALS: BP 124/66; O2SAT 99
== END 2023-03-27 21:01 | disposition home or self-care (01) ==
LOC: ER 18:18
DX: M54.50 Low back pain, unspecified (principal); I10 Essential (primary) hypertension; E11.9 Type 2 diabetes mellitus without complications; Z98.890 Other specified postprocedural states; Z79.899 Other long term (current) drug therapy
CPT/HCPCS: 99285; 74176; 96372; 85025; 80048; 36415; J1885